=== PATIENT | female | born 1990 | race Caucasian/White ===

== ENCOUNTER 2019-06-06 08:37 | Outpatient (CLI) | payer OTHER, SELFPAY ==
--- NOTE | ~2019-06-06 | XR_ITS ---
[[id number] ] INDICATION: Left anterior chest pain. Screening for tuberculosis. TECHNIQUE: Frontal projection of the upper left ribs, frontal projection of the lower left ribs, obli que projection of all the left ribs, frontal inspiratory chest x-ray for interpretation. COMPARISON: 02/23/2018 FINDINGS: There are no displaced rib fractures identified. There are no soft tissue abnormality see n. The lungs are clear. IMPRESSION: 1:No displaced rib fractures. Reviewed, dictated and finalized at location A. RETE GRINDER OPERATOR
--- NOTE | ~2019-06-06 | US_ITS ---
EXAMINATION: US abdomen limited EXAM DATE: 06/06/2019 09:04 INDICATION: Felty's syndrome. Splenomegaly. TECHNIQUE: Multiple grayscale and Doppler images of the left upper quadrant. were obtained (by a tech nologist who performed the scan) and subsequently reviewed. Correlation is made to CT abdomen 09/16/19. FINDINGS: The spleen is severely enlarged measuring 23 cm diameter by 10 cm in thickness. Superior pole of left kidney is unremarkable. On CT abdomen 2017, the spleen measured 16 x 7 cm. IMPRESSION: 1. Severe splenomegaly up to 23 cm. Reviewed, dictated and finalized at location A. LEUM LAYER
== END 2019-06-06 08:38 | disposition home or self-care (01) ==
PROVIDERS: PCP Physician Assistant
DX: M05.00 Felty's syndrome, unspecified site (principal); M05.9 Rheumatoid arthritis with rheumatoid factor, unspecified
CPT/HCPCS: 71101; 76705

== ENCOUNTER 2019-10-11 09:41 | Emergency (ER) | payer OTHER, SELFPAY ==
--- NOTE | 2019-10-11 10:00 | ED.ANXIETY ---
HPI - Anxiety General Chief Complaint: Anxiety Stated Complaint: legs tingle ,Sweats/ Numbness L arm/high blood pre Time Seen by Provider: 10/11/19 10:01 Source: patient Limitations: no limitations History of Present Illness HPI narrative: Patient states that she is having some generalized achiness. Some tingling in her feet and arms. She denies being anxious. She states she only has anxiety during storms. She did see her primary care recently and was supposed to start on some high blood pressure medication. She has not picked it up yet. She says this problem been going on for 2 weeks. She says that she stands and paces because makes the tingling in her toes feel better. complaint: anxiety Onset (ago): week(s) (2) Symptoms: extremity numbness/tingling Severity: moderate Quality: intermittent Relieving factors: nothing Associated symptoms: denies other symptoms Related Data Home Medications Medication Instructions Recorded Confirmed escitalopram oxalate 10 mg tablet 10 mg PO DAILY 07/31/19 sulfamethoxazole-trimethoprim 1 tablet PO DAILY 10/11/19 10/11/19 Allergies Allergy/AdvReac Type Severity Reaction Status Date / Time diphenhydramine Allergy Mild SEIZURES Verified 09/04/14 16:30 latex Allergy Mild Rash Verified 09/15/19 11:10 loratadine [From Claritin-D] Allergy Mild Hives Verified 09/15/19 11:10 pseudoephedrine Allergy Mild Hives Verified 09/15/19 11:10 [From Claritin-D] Review of Systems Review of Systems: All systems reviewed & are unremarkable except as noted in HPI and below Cardiovascular: Cardiovascular: Denies chest pain and Denies rapid heart rate Respiratory: Respiratory: Reports no additional respiratory complaints Gastrointestinal: Gastrointestinal: Reports no additional gastrointestinal complaints Musculoskeletal: Musculoskeletal: Reports no additional musculoskeletal complaints Neurologic: Reports system reviewed and no additional complaints, except as documented [facility] Past Medical History Medical History (Updated 10/11/19 @ 12:07 by John Delvalle MD) Anxiety 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 Surgical History Surgical History (Updated 10/11/19 @ 12:07 by John Delvalle MD) Post-lymphadenectomy lymphedema of arm Family History Family History Mother , 46 COPD (chronic obstructive pulmonary disease) Emphysema/COPD Father , cancer age 47 Lung cancer Grandparent Alzheimer disease Malignant neoplasm of prostate Grandparent , 46 cancer Lung cancer Sibling Lupus Sibling Lupus Social History Social History (Updated 07/31/19 @ 15:07 by Palam Portillo) Smoking status: Current every day smoker Tobacco type: e-cigarettes/vaping Alcohol intake: never Gender identity (if verbalized by the patient): Female Exam Const: General: healthy appearing and no acute distress Nutritional Appearance: well nourished and obese morbidly obese Orientation/consciousness: patient oriented x3 Other: Female nurse in room during examination. HENMT: Head: normal to inspection Eyes: Conjunctivae: conjunctivae normal Pupils: Equal, round and reactive pupils present EOM: EOMs intact bilaterally Neck: Neck: normal visual inspection Resp: Effort & Inspection: normal respiratory effort Auscultation: clear to auscultation bilaterally Cardio: Rate: regular rate Rhythm: regular rhythm GI: GI Palp: Yes Soft to palpation and No Tenderness to palpation present (GI) Auscultation: normal bowel sounds Back/Spine/Pelvis: Cervical Spine: cervical ROM normal Thoracic/Lumbar Spine: thoraco-lumbar ROM normal Skin: General skin exam: normal color Rashes: no rashes Neuro: General: patient oriented x3 and moves all extremities Extrem: General: normal to inspection and no clubbing, cyanosis or edema
[2019-10-11] MEDS: CLONIDINE HCL 0.2 MG TABLET PO (10:28)
[2019-10-11 10:47] VITALS: BP 167/87
[2019-10-11 11:14] VITALS: BP 151/92; PULSE 87; RESP 20; O2SAT 98
== END 2019-10-11 11:15 | disposition home or self-care (01) ==
PROVIDERS: Emergency Provider Emergency Medicine; PCP Physician Assistant
DX: I10 Essential (primary) hypertension (principal); F17.200 Nicotine dependence, unspecified, uncomplicated
CPT/HCPCS: 99282; 99283; A9270

== ENCOUNTER 2019-10-26 09:36 | Outpatient (CLI) | payer OTHER, SELFPAY ==
--- NOTE | ~2019-10-26 | XR_ITS ---
XR chest 2V DATE: 10/26/2019 10:06 INDICATION: Right chest pain TECHNIQUE: PA and lateral views COMPARISON: 02/23/2018 PA and lateral views FINDINGS: Normal heart size. No hilar or mediastinal enlargement. No pulmonary infiltrate or consol idation, pulmonary vascular congestion or pleural effusion or pneumothorax. IMPRESSION: No active cardiopulmonary disease Reviewed, dictated and finalized at location B.
== END 2019-10-26 09:37 | disposition home or self-care (01) ==
PROVIDERS: PCP Physician Assistant; Visit Provider Physician Assistant
DX: R07.89 Other chest pain (principal)
CPT/HCPCS: 71046

== ENCOUNTER 2019-11-07 09:59 | Emergency (ER) | payer OTHER, SELFPAY ==
--- NOTE | ~2019-11-07 | CT_ITS ---
EXAMINATION: CT abdomen pelvis w con EXAM DATE: 11/07/2019 13:24 INDICATION: High blood pressure. Left-sided abdominal pain. Splenomegaly. TECHNIQUE: Spiral CT of the abdomen and pelvis was performed following intravenous injection of 100 m L Omnipaque 350. Axial, coronal and sagittal images were reviewed. The dose-length product (DLP) fo r this examination was 1350.76 mGy-cm. The exposure was tailored according to patient size (auto mA exposure control), and iterative reconstruction (ASIR) was used as additional dose reduction techniqu e. Comparison is made to prior examination from 09/15/2017. FINDINGS: There is severe splenomegaly, with the spleen measuring 25 cm in craniocaudal dimension, in creased in size compared to 2018. The liver, spleen, adrenal glands and pancreas are otherwise unrem arkable. Gallbladder is unremarkable. No biliary obstruction. Portal and splenic veins are patent. Kidneys enhance symmetrically. There is no hydronephrosis. There is a 2 mm left inferior calyceal stone. The uterus and ovaries are unremarkable, no adnexal mass. The bladder is unremarkable. Ther e is no retroperitoneal or pelvic lymphadenopathy. The appendix is normal. The stomach and small bowel are unremarkable. There is expected amount of c olonic stool. No free intraperitoneal gas. The heart is normal in size. There are no pericardial or pleural effusions. The lung bases are unremarkable. The bones are unremarkable. IMPRESSION: 1. No acute intra-abdominal findings. 2. Severe splenomegaly. 3. Left nephrolithiasis. Reviewed, dictated and finalized at location A.
[2019-11-07 10:05] VITALS: BP 140/95; PULSE 79; RESP 20; TEMP 36.6; O2SAT 96
--- NOTE | 2019-11-07 10:32 | PC.NURSE ---
REPORT TO [facility]
--- NOTE | 2019-11-07 11:19 | ED.ABDPAIN ---
HPI - Abdominal Pain General Chief Complaint: Abdominal Pain Stated Complaint: High blood pressure/ Pain L side Source: patient Mode of arrival: ambulatory Limitations: no limitations History of Present Illness HPI narrative: pt states that ruq pain, this am, mild nausea. she was also concerned about her bp. MD elicited complaint: abdominal pain Quality: aching Radiation: LUQ Migration to: no migration Exacerbating factors: nothing Relieving factors: nothing Associated symptoms: nausea Related Data Date of Last Menstrual Period: 09/21/19 Patient : No (pt does not have sex with men) Home Medications Medication Instructions Recorded Confirmed escitalopram oxalate 10 mg tablet 10 mg PO DAILY 07/31/19 11/07/19 sulfamethoxazole-trimethoprim 1 tablet PO DAILY 10/11/19 11/07/19 amlodipine 5 mg PO BID 11/07/19 11/07/19 hydroxyzine HCl 25 mg PO DAILY 11/07/19 11/07/19 Allergies Allergy/AdvReac Type Severity Reaction Status Date / Time diphenhydramine Allergy Mild SEIZURES Verified 09/04/14 16:30 latex Allergy Mild Rash Verified 09/15/19 11:10 loratadine [From Claritin-D] Allergy Mild Hives Verified 09/15/19 11:10 pseudoephedrine Allergy Mild Hives Verified 09/15/19 11:10 [From Claritin-D] Review of Systems Review of Systems: All systems reviewed & are unremarkable except as noted in HPI and below Constitutional: Constitutional: Reports as per HPI and Reports no additional constitutional complaints Eyes: Eyes: Reports as per HPI ENT: Reports system reviewed and no additional complaints, except as documented Cardiovascular: Cardiovascular: Reports no additional cardiovascular complaints Respiratory: Respiratory: Reports no additional respiratory complaints Gastrointestinal: Gastrointestinal: Reports abdominal pain, Denies bloating, Denies constipation, Denies heartburn, Denies diarrhea, Reports nausea and Denies vomiting Musculoskeletal: Musculoskeletal: Reports no additional musculoskeletal complaints Integumentary/Breasts: Skin/Breast: Reports system reviewed and no additional complaints, except as docu Neurologic: Reports system reviewed and no additional complaints, except as documented Psychiatric: Psychiatric: Reports no additional psychiatric complaints Endocrine: Endocrine: Reports no additional endocrine complaints Hematologic/Lymphatic: Hematologic/Lymphatic: Reports no additional hematologic/lymphatic complaints Allergic/Immunologic: Allergic/Immunologic: Reports no additional allergic/immunologic complaints [facility] Past Medical History Medical History Anxiety 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 Surgical History Surgical History Post-lymphadenectomy lymphedema of arm Family History Family History Mother , 46 COPD (chronic obstructive pulmonary disease) Emphysema/COPD Father , cancer age 47 Lung cancer Grandparent Alzheimer disease Malignant neoplasm of prostate Grandparent , 46 cancer Lung cancer Sibling Lupus Sibling Lupus Social History Social History Smoking status: Current every day smoker Tobacco type: e-cigarettes/vaping Alcohol intake: never Gender identity (if verbalized by the patient): Female Exam Const: General: no acute distress and alert Orientation/consciousness: patient oriented x3 HENMT: Head: normal to inspection Eyes: Pupils: Equal, round and reactive pupils present Neck: Neck: normal visual inspection Chest: Chest palpation & inspection: normal inspection of the chest Resp: Effort & Inspection: normal respiratory effort Cardio: Rate: regular rate Rhythm: regular rhythm GI:
[2019-11-07 11:28] LABS: Add Urine Microscopic? NO; Appearance Urine Clear (Clear); Bilirubin Urine Negative (Negative); Blood Urine Negative (Negative); Color Urine Yellow (Yellow); Glucose Urine UA Negative (Negative); Ketones Urine Negative (Negative); Leukocyte Esterase Ur Negative LEU/UL (Negative); Nitrate Urine Negative (Negative); Protein Urine Negative (Negative); Specific Grav Ur <= 1.005 (1.010-1.020); Urobilinogen Urine 0.2 mg/dL (0.2-1.0)
[2019-11-07 11:33] LABS: Hemoglobin 11.9 g/dL (12.0-15.0); Mean Corpuscular HGB Conc 33.1 g/dL (32.0-36.0); Mean Corpuscular Hemoglobin 25.1 pg (27.0-31.0); Mean Corpuscular Volume 75.8 fL (78.0-102.0); Mean Platelet Volume 9.6 fl (9.2-11.8); Platelet Count Result 139 K/mm3 (150-420); Red Blood Count 4.75 M/mm3 (4.20-5.40)
[2019-11-07 11:34] VITALS: BP 109/62
[2019-11-07 11:47] LABS: Alanine Aminotransferase 40 U/L (14-59); Albumin Level 3.8 g/dL (3.4-5.0); Alkaline Phosphatase 90 U/L (46-116); Anion Gap 11.2 mmol/L (7-16); Aspartate Amino Transferase 29 U/L (15-37); Bilirubin,Total 0.3 mg/dL (0.00-1.00); Blood Urea Nitrogen 10 mg/dL (7-18); Calcium 8.8 mg/dL (8.5-10.1); Carbon Dioxide 28 mmol/L (21-32); Chloride 101 mmol/L (98-108); Estimated CRCL calculation 101 ml/min; Estimated Glomerular Filt Rate > 60; Glucose 101 mg/dL (70-99); Lipase 41 U/L (73-393); Osmolality Calculated 281 mOsm/kg (285-295); Potassium 4.2 mmol/L (3.5-5.1); Sodium 136 mmol/L (136-145); Total Protein 9.3 g/dL (6.4-8.2)
[2019-11-07 11:53] LABS: Band Neutrophils Percent 4 % (0-6); Basophils Absolute Manual 0.01 K/mm3 (0-0.1); Basophils Percent Manual 1 % (0-1); Eosinophils Absolute Manual 0.01 K/mm3 (0.02-0.5); Eosinophils Percent Manual 1 % (1-6); Lymphocytes Absolute Manual 0.68 K/mm3 (1.1-4.5); Lymphocytes Percent Manual 68 % (18-44); Monocytes Absolute Manual 0.14 K/mm3 (0.1-0.90); Monocytes Percent Manual 14 % (3-9); Neutrophils Absolute Manual 0.16 K/mm3 (1.7-7.2); Neutrophils Percent Manual 12 % (46-73); Platelet Estimate Adequate (Adequate); Total Cells Counted 100
[2019-11-07 12:56] LABS: Pregnancy On Board Control Positive; Specific Gravity Ur < 1.005 (1.010-1.035); Urine Pregnancy Test Negative
--- NOTE | 2019-11-07 14:00 | PC.NURSE ---
RUDDY POLLACK CALLED FOR CONSULT
[2019-11-07 14:15] VITALS: BP 151/97
== END 2019-11-07 14:15 | disposition home or self-care (01) ==
PROVIDERS: Emergency Provider Emergency Medicine; PCP Physician Assistant
DX: D70.9 Neutropenia, unspecified (principal); M05.79 Rheumatoid arthritis with rheumatoid factor of multiple sites without organ or systems involvement; R10.9 Unspecified abdominal pain
CPT/HCPCS: 36415; 74177; 80053; 81003; 81025; 83690; 85025; 99282; 99284; Q9965

== ENCOUNTER 2019-12-23 16:29 | Emergency (ER) | payer OTHER, SELFPAY ==
[2019-12-23 16:38] VITALS: BP 136/74; PULSE 96; RESP 20; TEMP 36.4; O2SAT 100
--- NOTE | 2019-12-23 17:08 | ED.WOUNDLAC ---
HPI - Wound/Laceration General Chief Complaint: Wound/Laceration Stated Complaint: Foot laceration Time Seen by Provider: 12/23/19 16:31 Source: patient and RN notes reviewed Limitations: no limitations History of Present Illness HPI narrative: The patient, who is on several meds, presents with foot laceration. Patient states she is compliant with her RA meds with associated Felty syndrome [neutropenia, thrombocytopenia last platelets =146k] she complains of lateral, right hindfoot laceration. She sustained a cut from a sliding door that closed upon it, prior to arrival. symptoms are mild to moderate w/bleeding, its better with rest or elevation. No weakness, numbness; immunizations UTD Related Data Home Medications Medication Instructions Recorded Confirmed escitalopram oxalate 10 mg tablet 10 mg PO DAILY 07/31/19 11/07/19 amlodipine 5 mg PO BID 11/07/19 11/07/19 acyclovir 12/23/19 amlodipine 12/23/19 clindamycin HCl 12/23/19 fluconazole 12/23/19 hydroxychloroquine 12/23/19 hydroxyzine HCl 12/23/19 losartan 12/23/19 methotrexate sodium 12/23/19 Allergies Allergy/AdvReac Type Severity Reaction Status Date / Time diphenhydramine Allergy Mild SEIZURES Verified 09/04/14 16:30 latex Allergy Mild Rash Verified 09/15/19 11:10 loratadine [From Claritin-D] Allergy Mild Hives Verified 09/15/19 11:10 pseudoephedrine Allergy Mild Hives Verified 09/15/19 11:10 [From Claritin-D] Review of Systems Review of Systems: Narrative: General/Constitutional: No weight loss,fever Eyes: N0: Redness,discharge Ears/Nose/Throat: No: Epistaxis,ear discharge Respiratory: Denies: Hemoptysis Gastrointestinal: No Vomiting, Bleeding-rectal Skin: No Lumps, eruption Neurologic: No Focal Weakness,Sz Hematologic: Denies: Petechiae/Purpura Psychiatric: No: Suicida ideationl All Other Systems: Reviewed and Negative [facility] Social History Social History Smoking status: Current every day smoker Tobacco type: e-cigarettes/vaping Alcohol intake: never Gender identity (if verbalized by the patient): Female Comments At time of signature, agree with nursing past medical, surgical, social and family history. There is no relevant family history pertinent to the presenting complaint Exam Narrative: Exam Narrative: General Appearance: Well appearing, Conjunctiva clear Mouth/Throat: Normal appearing, Supple Respiratory: Airway patent, No respiratory distress Skin: Warm, Dry, 7 cm lateral disto-lateral ankle/ hindfoot laceration which is linear and superficial MS-ankle: Full ROM, 5/5 strength Neurological: A&O x3, CN II-X intact Psychiatric: Normal mood, Normal affect Course Vital Signs Vital signs: Vital Signs Temperature 97.5 F L 12/23/19 16:38 Pulse Rate 96 12/23/19 16:38 Respiratory Rate 20 12/23/19 16:38 Blood Pressure 136/74 12/23/19 16:38 Pulse Oximetry 100 12/23/19 16:38 Temperature 97.5 F L 12/23/19 16:38 Pulse Rate 96 12/23/19 16:38 Respiratory Rate 20 12/23/19 16:38 Blood Pressure 136/74 12/23/19 16:38 Pulse Oximetry 100 12/23/19 16:38 Procedures Laceration Laceration 1: Date: 12/23/19 Site: lower extremity Side (If applicable): right Size (cm): 7 Description: linear Depth: simple, single layer Local Anesthetic: other anesthetic (topical) Amount of anesthesia used (mL): 1 Pre-repair: irrigated extensively ====== Skin Level ====== Skin layer closed with: dave ====== Subcutaneous Layer ====== ====== Muscle Layer ====== ====== Tendon Layer ====== Discharge Plan Discharge Clinical Impression: Foot laceration Patient Disposition: Home, Self-Care Condition: Improved Instructions: Antibiotic Form, Laceration (ED) Additional Instructions: Remove dave in about 8-10 days, then place butterfl
== END 2019-12-23 17:16 | disposition home or self-care (01) ==
PROVIDERS: Emergency Provider Emergency Medicine; PCP Physician Assistant
DX: S91.311A Laceration without foreign body, right foot, initial encounter (principal); W23.0XXA Caught, crushed, jammed, or pinched between moving objects, initial encounter; F17.200 Nicotine dependence, unspecified, uncomplicated; I10 Essential (primary) hypertension; M06.9 Rheumatoid arthritis, unspecified; F41.9 Anxiety disorder, unspecified; F32.9 Major depressive disorder, single episode, unspecified
CPT/HCPCS: 12002; 99213; G0463

== ENCOUNTER 2020-08-27 12:38 | Emergency (ER) | payer OTHER, SELFPAY ==
--- NOTE | ~2020-08-27 | US_ITS ---
EXAMINATION: US venous doppler [facility] DATE: 08/27/2020 15:26 INDICATION: Tachycardia. Near syncope. Lightheadedness. Rheumatoid arthritis and positive d-dimer. TECHNIQUE: Grayscale ultrasound images without and with compression and Doppler ultrasound images of the bilateral lower extremity veins were obtained. COMPARISON: None. FINDINGS: The visualized portions of right common femoral vein, profunda (deep) femoral vein, femoral vein, pop liteal vein, posterior tibial veins, peroneal veins, gastrocnemius vein and greater saphenous vein ou tflow are patent. The visualized portions of left common femoral vein, profunda femoral vein, femoral vein, popliteal v ein, posterior tibial veins, peroneal veins, gastrocnemius vein and greater saphenous vein outflow ar e patent. IMPRESSION: 1. No deep venous thrombosis in either lower limb. Reviewed, dictated and finalized at location A.
--- NOTE | ~2020-08-27 | CT_ITS ---
EXAMINATION: CTA chest PE protocol DATE: 08/27/2020 14:26 INDICATION: Near syncope. TECHNIQUE: Computed tomography angiography (CTA) of the chest was performed with 100 mL Omnipaque-350 intravenous contrast timed to evaluate the pulmonary arteries. Coronal maximum intensity projection 3D-reconstructions were created by the technologist. Automated exposure control and iterative reconst ruction technique were employed. The dose-length product was 844.63 mGy-cm. COMPARISON: CT abdomen and pelvis 11/07/2019 FINDINGS: There is no pneumonia or pleural effusion. The heart size is normal. No pericardial effusio n. There is no pulmonary embolus. There is a small sliding hiatal hernia. There are changes of splene ctomy. There is mild thoracic spondylosis. IMPRESSION: 1. No pulmonary embolus. 2. Small sliding hiatal hernia. Reviewed, dictated and finalized at location B.
[2020-08-27 12:45] VITALS: BP 162/102; PULSE 81; RESP 16; TEMP 37.1; O2SAT 100
--- NOTE | 2020-08-27 12:56 | ED.DIZZY ---
HPI - Dizziness General Chief Complaint: Dizziness Stated Complaint: feels like going to pass out Time Seen by Provider: 08/27/20 12:56 Source: patient Mode of arrival: ambulatory Limitations: no limitations History of Present Illness HPI Narrative: 29-year-old woman with history of rheumatoid arthritis and Felty syndrome Comes to the ER today complaining of lightheadedness while she was walking into the drugstore. Patient states that her vision got blurry, she felt like she was going to pass out and had rapid heart rate. She also felt nauseated. She states she has been having similar symptoms for last 2 days. She denies any recent illness, fever, cough, shortness of breath, chest pain, vomiting or diarrhea, abdominal pain, bruising, or calf pain. She checked her blood pressure and blood sugar at home, both were fine. MD elicited complaint: near syncope Onset (ago): day(s) (2) Timing: intermittent Severity: moderate Description: lightheadedness and near-syncope Context: exertion History of similar symptoms: No Exacerbating factors: standing Relieving factors: nothing Associated symptoms: nausea Associated neuro symptoms: vision changes Related Data Home Medications Medication Instructions Recorded Confirmed escitalopram oxalate 10 mg tablet 10 mg PO DAILY 07/31/19 08/27/20 amlodipine 5 mg PO BID 11/07/19 08/27/20 aspirin [Aspir-81] 81 mg PO DAILY 08/27/20 08/27/20 hydrochlorothiazide 25 mg PO DAILY 08/27/20 08/27/20 tramadol 5 mg PO TID PRN 08/27/20 08/27/20 Allergies Allergy/AdvReac Type Severity Reaction Status Date / Time diphenhydramine Allergy Mild SEIZURES Verified 09/04/14 16:30 latex Allergy Mild Rash Verified 09/15/19 11:10 loratadine [From Claritin-D] Allergy Mild Hives Verified 09/15/19 11:10 pseudoephedrine Allergy Mild Hives Verified 09/15/19 11:10 [From Claritin-D] Review of Systems Review of Systems: All systems reviewed & are unremarkable except as noted in HPI and below Constitutional: Constitutional: Denies chills and Denies fever(s) Eyes: Eyes: Denies change in vision and Denies photophobia ENT: Denies dysphagia, Denies nasal congestion and Denies sore throat Cardiovascular: Cardiovascular: Denies chest pain, Reports rapid heart rate and Denies radiating jaw, neck or arm pain Respiratory: Respiratory: Denies cough and Denies dyspnea Gastrointestinal: Gastrointestinal: Denies abdominal pain, Denies diarrhea, Reports nausea and Denies vomiting Genitourinary: Genitourinary: Denies nocturia and Denies dysuria Musculoskeletal: Musculoskeletal: Denies back pain, Denies arthralgias and Denies joint swelling Integumentary/Breasts: Skin/Breast: Denies pruritus, Denies erythema and Denies rash Neurologic: Denies vertigo, Reports dizziness, Denies syncope, Denies focal weakness and Denies numbness Hematologic/Lymphatic: Hematologic/Lymphatic: Denies easy bleeding and Denies easy bruising Allergic/Immunologic: Allergic/Immunologic: Denies lip swelling and Denies throat swelling PMFSH Past Medical History Medical History (Updated 08/27/20 @ 15:55 by David Mehta MD) Anxiety 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
--- NOTE | 2020-08-27 13:02 | ECG_ITS ---
Measurements Intervals [place] Rate: 66 P: 16 IN: 136 QRS: 40 QRSD: 100 T: -2 QT: 395 QTc: 416 Interpretive Statements SINUS RHYTHM INCOMPLETE RIGHT BUNDLE BRANCH BLOCK BORDERLINE T WAVE ABNORMALITY- INFERIOR LEADS BASELINE ARTIFACT- II, III, AVF BORDERLINE ECG Electronically Signed On 08-27-2020 17:56:39 CDT by Buck Andrade D.O.
[2020-08-27 13:10] LABS: Add Urine Microscopic? YES; Appearance Urine Clear (Clear); Bilirubin Urine Negative (Negative); Blood Urine 2+ (Negative); Color Urine Yellow (Yellow); Glucose Urine UA Negative (Negative); Ketones Urine Negative (Negative); Leukocyte Esterase Ur Negative LEU/UL (Negative); Nitrate Urine Negative (Negative); Protein Urine Negative (Negative); Specific Grav Ur <= 1.005 (1.010-1.020); Urobilinogen Urine 0.2 mg/dL (0.2-1.0)
[2020-08-27 13:11] VITALS: BP 143/95; PULSE 69
[2020-08-27 13:15] VITALS: BP 153/103; PULSE 72
[2020-08-27 13:19] LABS: Basophils Absolute Auto 0.08 K/mm3 (0.00-0.10); Basophils Percent Auto 1.1 % (0.0-1.0); Eosinophils Absolute Auto 0.13 K/mm3 (0.02-0.50); Eosinophils Percent Auto 1.8 % (1.0-6.0); Hematocrit 39.8 % (35.0-49.0); Hemoglobin 13.5 g/dL (12.0-15.0); Immature Granulocyte Absolute 0.02 K/mm3 (0.00-0.00); Immature Granulocyte Percent A 0.3 % (0.0-0.0); Immature Platelet Fraction Pct 1.9 % (1.0-7.0); Lymphocytes Absolute Auto 1.84 K/mm3 (1.10-4.50); Lymphocytes Percent Auto 25.4 % (18.0-42.0); Mean Corpuscular HGB Conc 33.9 g/dL (32.0-36.0); Mean Corpuscular Hemoglobin 29.8 pg (27.0-31.0); Mean Corpuscular Volume 87.9 fL (78.0-102.0); Mean Platelet Volume 9.1 fl (9.2-11.8); Monocytes Absolute Auto 0.71 K/mm3 (0.10-0.90); Monocytes Percent Auto 9.8 % (2.0-11.0); Neutrophils Absolute Auto 4.5 K/mm3 (1.7-7.2); Neutrophils Percent Auto 61.6 % (50.0-70.0); Platelet Count Result 620 K/mm3 (150-420); Red Blood Count 4.53 M/mm3 (4.20-5.40); Red Cell Distribution Width 14.2 % (11.6-14.4); White Blood Count 7.2 K/mm3 (4.8-10.8)
[2020-08-27 13:20] LABS: Bacteria Urine Trace /hpf; Squamous Epithelial Cell Urine Rare /hpf (Few); WBC Urine 0-3 /hpf (0-3)
[2020-08-27 13:32] LABS: Prothrombin Time 10.5 Seconds (9.50-12.10)
[2020-08-27 13:33] LABS: Alanine Aminotransferase 35 U/L (14-59); Albumin Level 4.1 g/dL (3.4-5.0); Alkaline Phosphatase 74 U/L (46-116); Anion Gap 8 mmol/L (8-16); Aspartate Amino Transferase 11 U/L (15-37); Bilirubin,Total 0.4 mg/dL (0.00-1.00); Blood Urea Nitrogen 8 mg/dL (7-18); Calcium 8.9 mg/dL (8.5-10.1); Carbon Dioxide 30 mmol/L (21-32); Chloride 102 mmol/L (98-108); Estimated Glomerular Filt Rate > 60; Glucose 115 mg/dL (70-99); Osmolality Calculated 289 mOsm/kg (285-295); Potassium 3.5 mmol/L (3.5-5.1); Sodium 140 mmol/L (136-145); Total Protein 8.8 g/dL (6.4-8.2)
[2020-08-27 13:36] LABS: Lactic Acid Reflex 0.9 mmol/L (0.4-2.0)
[2020-08-27 13:41] LABS: D Dimer 0.81 mg/L (0.19-0.50)
[2020-08-27 14:05] LABS: Pregnancy On Board Control Positive; Urine Pregnancy Test Negative
[2020-08-27 16:00] VITALS: BP 123/56
== END 2020-08-27 16:02 | disposition home or self-care (01) ==
PROVIDERS: Emergency Provider Emergency Medicine; PCP Physician Assistant
DX: R42 Dizziness and giddiness (principal)
CPT/HCPCS: 36415; 71275; 80053; 81001; 81025; 83605; 85025; 85055; 85380; 85610; 85730; 93005; 93970; 99283; 99284; Q9967

== ENCOUNTER 2022-03-09 14:01 | Emergency (ER) | payer OTHER, SELFPAY ==
[2022-03-09 14:30] VITALS: BP 124/81; PULSE 59; RESP 16; TEMP 36.7; O2SAT 100
--- NOTE | 2022-03-09 15:44 | ED.URI ---
HPI - URI/Sore Throat General Chief Complaint: Upper Respiratory Infection Stated Complaint: sore throat ear fluid Time Seen by Provider: 03/09/22 15:45 Source: patient and RN notes reviewed Mode of arrival: ambulatory Limitations: no limitations History of Present Illness HPI Narrative: 31-year-old female presents with concern for left-sided sore throat and ear pain. Denies nasal congestion and rhinorrhea, headache, fever, aches, chills, sweats. Denies drainage from the ear. Denies known sick contacts. Reports history of spleen removal MD elicited complaint: sore throat Related Data Home Medications Medication Instructions Recorded Confirmed escitalopram oxalate 10 mg tablet 10 mg PO DAILY 07/31/19 08/27/20 amlodipine 5 mg tablet 5 mg PO BID 11/07/19 08/27/20 aspirin 81 mg tablet,delayed 81 mg PO DAILY 08/27/20 08/27/20 release hydrochlorothiazide 25 mg tablet 25 mg PO DAILY 08/27/20 08/27/20 tramadol 50 mg tablet 5 mg PO TID PRN Pain 08/27/20 08/27/20 Allergies Allergy/AdvReac Type Severity Reaction Status Date / Time diphenhydramine Allergy Mild SEIZURES Verified 09/04/14 16:30 latex Allergy Mild Rash Verified 09/15/19 11:10 loratadine [From Claritin-D] Allergy Mild Hives Verified 09/15/19 11:10 pseudoephedrine Allergy Mild Hives Verified 09/15/19 11:10 [From Claritin-D] Review of Systems Review of Systems: CONSTITUTIONAL: Denies malaise, chills, sweats, or fever. EYES: Denies visual changes, redness, or discharge. ENT: Reports rhinorrhea, congestion, sinus pain. Reports left-sided otalgia and sore throat. CARDIOVASCULAR: Denies chest pain, palpitations, or edema. RESPIRATORY: Denies cough. Denies dyspnea. GASTROINTESTINAL: Denies abdominal pain, nausea, vomiting, diarrhea SKIN: Denies rash or itching. MUSCULOSKELETAL: Denies myalgia. NEUROLOGIC: Denies headache. 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 Surgical History Surgical History (Updated 08/27/20 @ 13:47 by Dvaid Mehta MD) H/O splenectomy Post-lymphadenectomy lymphedema of arm Family History Family History Mother , 46 COPD (chronic obstructive pulmonary disease) Emphysema/COPD Father , cancer age 47 Lung cancer Grandparent Alzheimer disease Malignant neoplasm of prostate Grandparent , 46 cancer Lung cancer Sibling Lupus Sibling Lupus Social History Social History Smoking status: Current every day smoker Tobacco type: e-cigarettes/vaping Alcohol intake: never Gender identity (if verbalized by the patient): Female Comments At time of signature, agree with nursing past medical, surgical, social and family history. There is no relevant family history pertinent to the presenting complaint Exam Narrative: GENERAL: Well-appearing, well-nourished, and in no acute distress. HEAD: Normocephalic EYES: PERRLA, conjunctivae clear ENT: Nares clear, turbinates edematous and erythematous, clear discharge. Mucous membranes moist. TM pearly sanon with sharp light reflex bilaterally; no tragal tenderness. Oropharynx erythematous without lesions. Left-sided Tonsils enlarged with exudate. No drooling, no hoarseness, no trismus, uvula midline. NECK: Supple. No lymphadenopathy CHEST: Clear to auscultation, breath sounds equal. No wheezing, rhonchi, rales, or stridor. No respiratory distress, speaks in full sentences. HEART: Regular rate and rhythm. No murmur heard. SKIN: Warm, dry, no rash. NEURO: Alert and oriented x3. PSYCH: Normal mood and affect Course Course Emergency Course: Patient is aware of diagnosis, unde
== END 2022-03-09 16:20 | disposition home or self-care (01) ==
PROVIDERS: Emergency Provider Nurse Practitioner; PCP Physician Assistant
DX: J03.90 Acute tonsillitis, unspecified (principal); F41.9 Anxiety disorder, unspecified; J45.909 Unspecified asthma, uncomplicated; M05.9 Rheumatoid arthritis with rheumatoid factor, unspecified; F17.290 Nicotine dependence, other tobacco product, uncomplicated
CPT/HCPCS: 87081; 87880; 99213; G0463

== ENCOUNTER 2022-07-07 07:45 | Emergency (ER) | payer OTHER, SELFPAY ==
[2022-07-07 07:45] VITALS: BP 137/85; PULSE 87; RESP 18; TEMP 37.1; O2SAT 97
--- NOTE | 2022-07-07 07:59 | ED.FEMALEGU ---
HPI - Female Genitourinary General Chief complaint: Upper Respiratory Infection Stated complaint: Facial Swelling Time Seen by Provider: 07/07/22 07:58 Source: patient History of Present Illness HPI Narrative: 31-year-old white female complains of cold sore on her upper lip that started last night and then has swelling for lymph nodes on to her neck /chin. Otherwise is eating drinking stooling voiding fine no rash itching cough fever runny nose earache or any pain anywhere or bleeding or bruising or any other complaint. Related Data Home Medications Medication Instructions Recorded Confirmed escitalopram oxalate 10 mg tablet 10 mg PO DAILY 07/31/19 07/07/22 amlodipine 5 mg tablet 5 mg PO BID 11/07/19 07/07/22 aspirin 81 mg tablet,delayed 81 mg PO DAILY 08/27/20 07/07/22 release hydrochlorothiazide 25 mg tablet 25 mg PO DAILY 08/27/20 07/07/22 tramadol 50 mg tablet 5 mg PO TID PRN Pain 08/27/20 07/07/22 Allergies Allergy/AdvReac Type Severity Reaction Status Date / Time diphenhydramine Allergy Mild SEIZURES Verified 07/07/22 08:05 latex Allergy Mild Rash Verified 07/07/22 08:05 loratadine [From Claritin-D] Allergy Mild Hives Verified 07/07/22 08:05 pseudoephedrine Allergy Mild Hives Verified 07/07/22 08:05 [From Claritin-D] Review of Systems Constitutional: Constitutional: Reports no additional constitutional complaints Eyes: Eyes: Reports no additional eye complaints ENT: Reports as per HPI, Denies nasal congestion and Denies sore throat Cardiovascular: Cardiovascular: Reports no additional cardiovascular complaints Respiratory: Respiratory: Reports no additional respiratory complaints Gastrointestinal: Gastrointestinal: Reports no additional gastrointestinal complaints Genitourinary: Genitourinary: Reports no additional female genitourinary complaints Musculoskeletal: Musculoskeletal: Reports no additional musculoskeletal complaints Integumentary/Breasts: Skin/Breast: Reports system reviewed and no additional complaints, except as docu Neurologic: Reports system reviewed and no additional complaints, except as documented PMFSH Past Medical History Medical History (Updated 07/07/22 @ 08:24 by Jan Keller MD) Anxiety 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 intake: never Living arrangements: with family Gender identity (if verbalized by the patient): Female Exam Narrative: White female she appears in no apparent distress head is normocephalic atraumatic. Conjunctiva pink sclera nonicteric. Oropharynx is clear with moist mucous membranes. Upper lip shows the crops of vesicles and mild swelling of her upper lip. Neck is supple positive anterior cervical lymphadenopathy there are tender. Lungs are clear heart is regular rate rhythm without murmurs gallops rubs extremities no cyanosis clubbing or edema neurological she is alert and oriented x4 motor sensory grossly intact. MDM - Female Genitourinary MDM Narrative Medical decision making narrative: This is likely herpes simplex infection then also could have strep throat as well. Strep screen was ordered she is given ibuprofen 400 mg her pain. Should be given a
[2022-07-07] MEDS: IBUPROFEN 400 MG TABLET PO (08:16)
[2022-07-07 08:50] LABS: Strep Group A RT-PCR NOT DETECTED (Negative)
[2022-07-07 09:00] VITALS: BP 122/78; PULSE 80; RESP 18; O2SAT 98
== END 2022-07-07 09:00 | disposition home or self-care (01) ==
PROVIDERS: Emergency Provider Emergency Medicine; PCP Physician Assistant
DX: A60.00 Herpesviral infection of urogenital system, unspecified (principal); M06.9 Rheumatoid arthritis, unspecified; F17.290 Nicotine dependence, other tobacco product, uncomplicated; Z79.82 Long term (current) use of aspirin
CPT/HCPCS: 87651; 99283; A9270

== ENCOUNTER 2022-09-01 08:24 | Outpatient (CLI) | payer OTHER, SELFPAY ==
--- NOTE | ~2022-09-01 | US_ITS ---
US right upper quadrant INDICATION: Right upper quadrant pain PROCEDURE: Realtime right upper abdominal ultrasound. COMPARISON: No prior studies for comparison. FINDINGS: The pancreas is normal without focal mass or pancreatic ductal dilation. Fatty infiltratio n of the liver. There is normal directional flow in the portal vein. The gallbladder is normal without stones, gallbladder wall thickening or pericholecystic fluid. Comm on bile duct measures 3 mm. No sonographic Velasco's sign. IMPRESSION: 1: Fatty infiltration of the liver. Reviewed, dictated and finalized at location L.
== END 2022-09-01 08:25 | disposition home or self-care (01) ==
LOC: CHSIMG 08:25
PROVIDERS: PCP Physician Assistant; Visit Provider Physician Assistant
DX: R10.11 Right upper quadrant pain (principal); K76.0 Fatty (change of) liver, not elsewhere classified
CPT/HCPCS: 76705

== ENCOUNTER 2023-08-22 14:44 | Outpatient (CLI) | payer OTHER, SELFPAY ==
--- NOTE | ~2023-08-22 | US_ITS ---
EXAMINATION: US OB BPP wo non-stress DATE: 08/22/2023 15:55 INDICATION: Hypertension during third trimester . TECHNIQUE: Real-time pelvic ultrasound was performed. The interpreting radiologist was not present fo r the study. COMPARISON: None. FINDINGS: There is a single living fetus in vertex presentation. The placenta is posterior. heart rate i s 129 beats per minute (bpm). Normal amniotic fluid volume of 13.5 cm (5th%-95%: 7.7-84.9 cm at 33 we eks estimated gestational age). Normal deepest vertical pocket measuring 5.3 cm. Biophysical profile performed by the technologist: breathing (30 sec sustained breathing in 30 minutes): 2 out of 2 movement (3 gross body movements in 30 minutes): 2 out of 2 tone (one episode of jblmmrl-udybkmbey-ixnzohq limb movement): 2 out of 2 Amniotic fluid pocket (2 cm): 2 out of 2 Total score: 8 out of 8 IMPRESSION: 1. Single living fetus in vertex presentation with heart rate of 129 bpm. 2. Biophysical profile 8 out of 8. 3. Normal amniotic fluid index of 13.5 cm. Reviewed, dictated and finalized at location A.
[2023-08-22 15:16] VITALS: BP 136/77; PULSE 69
[2023-08-22 16:31] VITALS: BP 136/77
== END 2023-08-22 16:06 | disposition home or self-care (01) ==
LOC: ANHOBOP 14:53 → ANHOBPP 14:53
PROVIDERS: Visit Provider Obstetrics & Gynecology
DX: O13.9 Gestational [pregnancy-induced] hypertension without significant proteinuria, unspecified trimester (principal); Z3A.00 Weeks of gestation of pregnancy not specified
CPT/HCPCS: 59025; 76819; 99199

== ENCOUNTER 2023-09-10 14:47 | Outpatient (CLI) | payer OTHER, SELFPAY ==
[2023-09-10] VITALS (15 sets, daily range): BP systolic 142–164; BP diastolic 73–91; PULSE 60–81
--- NOTE | ~2023-09-10 | US_ITS ---
EXAMINATION: US OB BPP wo non-stress DATE: 09/10/2023 17:35 INDICATION: Prolonged cardiac accelerations during third trimester . Assess biophysica l profile. TECHNIQUE: Real-time pelvic ultrasound was performed. The interpreting radiologist was not present fo r the study. COMPARISON: None. FINDINGS: There is a single living fetus in vertex presentation. The placenta is posterior. heart rate i s 119 beats per minute (bpm). Normal amniotic fluid index of 8.1 cm with normal deepest vertical pock et of 4.8 cm. Biophysical profile performed by the technologist: breathing (30 sec sustained breathing in 30 minutes): 2 out of 2 movement (3 gross body movements in 30 minutes): 2 out of 2 tone (one episode of kfmqjvl-tonyyegfa-onsjwgl limb movement): 2 out of 2 Amniotic fluid pocket (2 cm): 2 out of 2 Total score: 8 out of 8 IMPRESSION: 1. Single living fetus in vertex presentation with heart rate of 119 bpm. 2. Biophysical profile 8 out of 8. 3. Normal amniotic fluid index of 8.1 cm. Reviewed, dictated and finalized at location A.
[2023-09-10 15:40] LABS: Basophils Absolute Auto 0.1 K/mm3 (0.0-0.1); Basophils Percent Auto 0.3 % (0.2-1.2); Eosinophils Absolute Auto 0.1 K/mm3 (0-0.3); Eosinophils Percent Auto 0.4 % (0-4.4); Hematocrit 31.9 % (37.0-47.0); Hemoglobin 10.6 g/dL (12.0-15.0); Immature Granulocyte Absolute 0.06 K/mm3 (0.00-0.031); Immature Granulocyte Percent A 0.4 % (0-0.5); Lymphocytes Absolute Auto 3.01 K/mm3 (0.9-3.2); Lymphocytes Percent Auto 19.1 % (18.3-44.2); Mean Corpuscular HGB Conc 33.2 g/dl (32-36); Mean Corpuscular Hemoglobin 30.4 pg (26-34); Mean Corpuscular Volume 91.4 fl (80-100); Mean Platelet Volume 10.7 fl (7.4-10.4); Monocytes Absolute Auto 1.3 K/mm3 (0.1-0.6); Neutrophils Absolute Auto 11.3 K/mm3 (1.3-6.7); Neutrophils Percent Auto 71.8 % (45.5-73.1); Platelet Count Result 436 k/mm3 (150-375); Red Blood Count 3.49 M/mm3 (4.2-5.4); White Blood Count 15.7 K/mm3 (4.5-10.0)
[2023-09-10 15:42] LABS: Appearance Urine Clear (Clear); Bilirubin Urine Negative (Negative); Blood Urine Negative (Negative); Color Urine Yellow (Yellow); Glucose Urine UA Negative (Negative); Ketones Urine Negative (Negative); Leukocyte Esterase Ur Negative LEU/UL (Negative); Nitrate Urine Negative (Negative); Protein Urine Negative (Negative); Urobilinogen Urine 0.2 mg/dL (<2.0)
[2023-09-10 15:49] LABS: Creatinine Urine 33.8 mg/dL; Total Protein Urine Random 9 mg/dL; Ur Ttl Prot Creatinine Ratio 0.27 mg/mg (0-0.20)
[2023-09-10 15:52] LABS: Alanine Aminotransferase 10 U/L (6-35); Albumin Level 3.7 g/dL (3.5-5.1); Alkaline Phosphatase 79 U/L (38-126); Anion Gap 9 mmol/L (4-12); Aspartate Amino Transferase 16 U/L (14-36); Bilirubin,Total 0.3 mg/dL (0.2-1.3); Blood Urea Nitrogen 14 mg/dL (7-17); Carbon Dioxide 18 mmol/L (22-30); Chloride 109 mmol/L (98-107); Estimated Glomerular Filt Rate > 60; Glucose 98 mg/dL (65-110); Potassium 3.6 mmol/L (3.4-5.0); Sodium 136 mmol/L (137-145); Uric Acid 5.3 mg/dL (2.5-7.5)
[2023-09-10 16:09] LABS: Add Urine Microscopic? NO
[2023-09-10] MEDS: LABETALOL HCL 100 MG TABLET 200 MG PO (16:40)
--- NOTE | 2023-09-10 18:47 | PC.NURSE ---
Called Dr. Arciniega with pt status. BPs given. August D/C home to follow up in office on Wednesday morning. Pt to take Labetalol 200mg BID at home.
== END 2023-09-10 18:47 | disposition home or self-care (01) ==
LOC: ANHOBOP 14:52 → ANHOBPP 14:53
PROVIDERS: PCP Physician Assistant; Visit Provider Obstetrics & Gynecology
DX: O13.9 Gestational [pregnancy-induced] hypertension without significant proteinuria, unspecified trimester (principal); Z3A.00 Weeks of gestation of pregnancy not specified
CPT/HCPCS: 36415; 59025; 76819; 80053; 81003; 82570; 84156; 84550; 85025; 99199; A9270

== ENCOUNTER 2023-09-16 19:28 | Inpatient (IN) | payer OTHER, SELFPAY ==
[2023-09-16 20:10] VITALS: BMI 44.3
--- NOTE | 2023-09-16 20:10 | LDADM ---
This patient, Nickie Martinez, was admitted to Labor/Delivery/Recovery 107 on 09/16/23 at 19:28. Plans for labor, pain management and were discussed with patient. Patient/family oriented to hospital policies and general routines including ID bracelet, bed and alarms, visiting hours, pain management, procedures, bathroom and other care routines, personal items, smoking policy, room service/diet and guest tray routines, security routines, and visiting hours. Patient/Family are encouraged to report perceived risks to care and to ask questions if they do not understand what they are told or what they should do. See OBIX for further documentation.
[2023-09-16 20:25] VITALS: BP 149/75; PULSE 70
[2023-09-16 20:31] VITALS: TEMP 36.6
[2023-09-16] MEDS: DINOPROSTONE 10 MG VAG INSERT VAGINAL (20:52)
[2023-09-16 20:56] LABS: Basophils Percent Auto 0.3 % (0.2-1.2); Eosinophils Absolute Auto 0.1 K/mm3 (0-0.3); Eosinophils Percent Auto 0.3 % (0-4.4); Hematocrit 32.1 % (37.0-47.0); Hemoglobin 11.1 g/dL (12.0-15.0); Immature Granulocyte Absolute 0.06 K/mm3 (0.00-0.031); Immature Granulocyte Percent A 0.4 % (0-0.5); Lymphocytes Absolute Auto 3.42 K/mm3 (0.9-3.2); Lymphocytes Percent Auto 22.2 % (18.3-44.2); Mean Corpuscular HGB Conc 34.6 g/dl (32-36); Mean Corpuscular Hemoglobin 31.3 pg (26-34); Mean Corpuscular Volume 90.4 fl (80-100); Mean Platelet Volume 11.7 fl (7.4-10.4); Monocytes Absolute Auto 1.1 K/mm3 (0.1-0.6); Neutrophils Absolute Auto 10.8 K/mm3 (1.3-6.7); Neutrophils Percent Auto 69.8 % (45.5-73.1); Platelet Count Result 408 k/mm3 (150-375); Red Blood Count 3.55 M/mm3 (4.2-5.4); White Blood Count 15.4 K/mm3 (4.5-10.0)
[2023-09-16 21:18] LABS: Acanthocytes 2+; Platelet Clumps Present; Platelet Estimate Adequate (Adequate); Poikilocytosis 1+
[2023-09-16 21:19] LABS: Schistocytes None Seen
[2023-09-16 21:46] LABS: HIV 1/2 Ab P24 Ag Result Negative (Negative)
[2023-09-16 23:21] VITALS: BP 160/77; PULSE 66
[2023-09-16 23:39] VITALS: BP 154/84; PULSE 61
[2023-09-16 23:44] LABS: Glucose Point of Care 109 mg/dl (65-105)
[2023-09-16] MEDS: LABETALOL HCL 100 MG TABLET 200 MG PO (23:51)
[2023-09-17] VITALS (73 sets, daily range): BP systolic 99–199; BP diastolic 51–92; PULSE 53–85; RESP 16–18; TEMP 36.2–36.9; O2SAT 97–100
[2023-09-17] MEDS: ACETAMINOPHEN 500 MG TABLET 1000 MG PO (03:10)
--- NOTE | 2023-09-17 06:00 | P.PNAN_ITS ---
Anes - Eval Pre Procedure Procedure: Labor epidural Date/Time: 09/17/23 06:00 Surgeon: Demian Preop Diagnosis: Abdominal pain with contractions Pre Op Diagnosis: IOL Patient Data Age: 32 Gender: F Height: 1.57 m Weight: 110 kg Last Vital Signs Temp 97.8 F 09/17/23 05:00 Pulse 60 09/17/23 05:04 BP 123/68 09/17/23 05:04 Pulse Ox 100 09/17/23 05:06 O2 Del Method Room Air 09/16/23 21:14 Allergies Allergy/AdvReac Type Severity Reaction Status Date / Time diphenhydramine Allergy Mild SEIZURES Verified 07/07/22 08:05 latex Allergy Mild Rash Verified 07/07/22 08:05 loratadine [From Claritin-D] Allergy Mild Hives Verified 07/07/22 08:05 pseudoephedrine Allergy Mild Hives Verified 07/07/22 08:05 [From Claritin-D] Home Medications Medication Instructions Recorded Confirmed Type escitalopram oxalate 10 mg tablet 10 mg PO DAILY 07/31/19 09/16/23 History aspirin 81 mg tablet,delayed 81 mg PO DAILY 08/27/20 09/16/23 History release labetalol 200 mg tablet 200 mg PO Q12H #14 tabs 09/10/23 09/16/23 Rx Laboratory Tests 09/16/23 09/16/23 20:23 23:41 WBC 15.4 H K/mm3 (4.5-10.0) RBC 3.55 L M/mm3 (4.2-5.4) Hgb 11.1 L g/dL (12.0-15.0) Hct 32.1 L % (37.0-47.0) MCV 90.4 fl (80-100) MCH 31.3 pg (26-34) MCHC 34.6 g/dl (32-36) RDW 14.0 % (11.5-14.5) Plt Count 408 H k/mm3 (150-375) MPV 11.7 H fl (7.4-10.4) Immature Gran % (Auto) 0.4 % (0-0.5) Neut % (Auto) 69.8 % (45.5-73.1) Lymph % (Auto) 22.2 % (18.3-44.2) [place] % (Auto) 7.0 % (2.6-8.5) Eos % (Auto) 0.3 % (0-4.4) Baso % (Auto) 0.3 % (0.2-1.2) Lymph # (Auto) 3.42 H K/mm3 (0.9-3.2) Wise # (Auto) 1.1 H K/mm3 (0.1-0.6) Eos # (Auto) 0.1 K/mm3 (0-0.3) Baso # (Auto) 0.0 K/mm3 (0.0-0.1) Abs Immat Gran (auto) 0.06 H K/mm3 (0.00-0.031) Absolute Neuts (auto) 10.8 H K/mm3 (1.3-6.7) Absolute Nucleated RBC 0.000 K/mm3 (0.0-0.012) Nucleated RBC % 0.0 % (0.0-0.2) Platelet Estimate Adequate (Adequate) Clumped Platelets Present % Immature Plt Fraction 8.0 % (0.9-11.2) Poikilocytosis 1+ Acanthocytes (Spur) 2+ Schistocytes None seen POC Capillary Glucose 109 H mg/dl (65-105) RPR Pending HIV 1&2 Ab/P24 Ag 4thGn Negative (Negative) Blood Type O Positive Antibody Screen Negative : gestational age HCG: positive Patient hx anesthesia problems: none Family hx anesthesia problems: none Results Review: All pre-operative results and documents have been reviewed as part of the pre- operative evaluation. [facility] Past Medical History Medical History Anxiety Arthritis Felty syndrome Morbid obesity Rheumatoid arthritis with rheumatoid factor of multiple sites without organ or systems involvement Vapes nicotine containing substance Surgical History Surgical History H/O splenectomy Post-lymphadenectomy lymphedema of arm Family History Family History Mother , 46 COPD (chronic obstructive pulmonary disease) Emphysema/COPD Father , cancer age 47 Lung cancer Grandparent Alzheimer disease Malignant neoplasm of prostate Grandparent , 46 cancer Lung cancer Sibling Lupus Sibling Lupus Social History Social History Smoking status: Never smoker Tobacco type: e-cigarettes/vaping Alcohol intake: never Substance use: never Do You Feel Safe in your Home?: Yes Lack of Transportation: No Lack of Food: Never True Current Housing: I Have Housing Concerned About Future Housing: No Difficulty Paying Gas/Electric Bills: No Difficulty Paying for Meds: No Currently Unemployed: No Education: Grade School Difficulty w/ Childcare or Family Care: No Living arrangements: with family Gender identity (if verbalized by the patient): Female Spiritual care concerns: No Exam Day of Procedure 09/17/23 06:00 Patient weight: morbidly obese
--- NOTE | 2023-09-17 08:28 | WPDHPUPDATE1 ---
History and Physical Update Update Date/Time: 09/17/23 08:28 32-year-old 1 at 37 weeks gestation who presents for induction for gestational hypertension. She has completed a round of Cervidil. Her cervix remains unfavorable. We will start doses of Cytotec. there is reassuring heart tones. Her cervix is 1 thick and very posterior. History and Physical has been reviewed, including an updated exam of the patient. There are NO changes in the patient's condition. Risks, benefits, and alternatives have been discussed and questions answered. Patient agrees to proceed with procedure.
[2023-09-17] MEDS: ESCITALOPRAM OXALATE 10 MG TABLET PO (08:29)
[2023-09-17] MEDS: LABETALOL HCL 100 MG TABLET 200 MG PO ×2 (08:29→21:04)
[2023-09-17 08:35] LABS: Glucose Point of Care 104 mg/dl (65-105)
[2023-09-17] MEDS: miSOPROStol 25 MCG TABLET 50 MCG PO (09:36)
[2023-09-17 12:34] LABS: Rapid Plasma Reagin Non-Reactive (NonReactive)
--- NOTE | 2023-09-17 15:08 | PCCCNOTE ---
Recvd consult asking to provide resources. Met with pt. who had her sister Jazmine on speaker phone during conversation. Pt. reports this is her first baby. Pt. venkat will be staying with Jazmine at Jazmine's home in [facility] ([address]) and venkat has multiple siblings who are all supportive. Pt. specifically mentions Jazmine and Glendy. The address on pt's medical chart is Glendy's house ([address] [place] [address]). Pt. venkat was living with her spouse Thea up until recently and now they are going through a divorce. Thea's house is in [place], per pt. Pt. denies any violence or threats between her and spouse. Pt. venkat has all baby supplies and is established with [employer]. Pt. looking into WIC. Pt. denies any involvement with DCFS. Pt. denies drug use. Pt. was provided with SDOH resources, , and financial resources.
[2023-09-17] MEDS: AMPICILLIN 2 GM/NS 100 ML 2 GM/100 ML BAG IVPB (15:55)
[2023-09-17] MEDS: LACTATED RINGERS 1,000 ML 125 ML IV CONT ×2 (15:55→22:34)
[2023-09-17] MEDS: OXYTOCIN 30 UNITS/NS 500 ML 30 UNITS/500 ML BAG 6 UNITS IV CONT (15:56)
--- NOTE | 2023-09-17 19:37 | PM.OBPNVD ---
OB - PN: Subj Subjective Date/time seen: 09/17/23 19:37 Interval history: Artificial rupture of membranes-clear, 1.5 cm/ 80%/-2. reassuring status. OB - PN: Obj Data Labs 09/16/23 20:23 Labs: Laboratory Results - last 24 hr 09/16/23 09/16/23 09/17/23 20:23 23:41 08:31 WBC 15.4 H RBC 3.55 L Hgb 11.1 L Hct 32.1 L MCV 90.4 MCH 31.3 MCHC 34.6 RDW 14.0 Plt Count 408 H MPV 11.7 H Immature Gran % (Auto) 0.4 Neut % (Auto) 69.8 Lymph % (Auto) 22.2 [place] % (Auto) 7.0 Eos % (Auto) 0.3 Baso % (Auto) 0.3 Lymph # (Auto) 3.42 H [place] # (Auto) 1.1 H Eos # (Auto) 0.1 Baso # (Auto) 0.0 Abs Immat Gran (auto) 0.06 H Absolute Neuts (auto) 10.8 H Absolute Nucleated RBC 0.000 Nucleated RBC % 0.0 Platelet Estimate Adequate Clumped Platelets Present % Immature Plt Fraction 8.0 Poikilocytosis 1+ Acanthocytes (Spur) 2+ Schistocytes None seen POC Capillary Glucose 109 H 104 RPR Non-reactive HIV 1&2 Ab/P24 Ag 4thGn Negative Blood Type O Positive Antibody Screen Negative OB - PN A/P Time Spent With Patient Time: Total time spent is greater than 50% in coordination of care (as documented) at patient's floor/unit and/or counseling patient:
[2023-09-17] MEDS: AMPICILLIN 1 GM/NS 50 ML 1 GM/50 ML BAG IVPB ×2 (19:45→23:51)
[2023-09-17] MEDS: CALCIUM CARBONATE (TUMS) 500 MG (200 MG ELEMENTAL) PO (20:08)
[2023-09-18] VITALS (132 sets, daily range): BP systolic 95–156; BP diastolic 40–94; PULSE 52–109; RESP 16–18; TEMP 36.5–37.1; O2SAT 83–100
[2023-09-18] MEDS: LACTATED RINGERS 1,000 ML 125 ML IV CONT (03:33)
[2023-09-18] MEDS: AMPICILLIN 1 GM/NS 50 ML 1 GM/50 ML BAG IVPB (03:33)
--- NOTE | 2023-09-18 06:50 | PM.OBPRVD ---
OB - Vaginal Delivery Note Procedure Delivery date: 09/18/23 Induction method: AROM and Per Pitocin Protocol Delivery monitor: External FHT and Internal Uterine Route of delivery: Episiotomy description: None Laceration Description: Perineal - 2nd Degree Delivery repair: vicryl Specimen: Yes Quantitative Blood Loss (ml): 250 [place]wl Baby Date of : 09/18/23 Time of : 06:29 Weeks of gestation at delivery: 37 Infant gender: Female Weight (pounds): 5 Weight (ounces): 12
[2023-09-18] MEDS: OXYTOCIN 30 UNITS/NS 500 ML 30 UNITS/500 ML BAG 125 UNITS IV CONT (06:53)
[2023-09-18] MEDS: LABETALOL HCL 100 MG TABLET 200 MG PO ×2 (09:13→20:42)
[2023-09-18] MEDS: ESCITALOPRAM OXALATE 10 MG TABLET PO (09:15)
[2023-09-18] MEDS: MULTIVIT/MIN/PREN/FOL AC/IRON TABLET 1 TAB PO (09:15)
[2023-09-18] MEDS: BENZOCAINE 20% AER SPR (*SP) 56 GM CAN 1 SPRAY TOPICAL (09:19)
[2023-09-18] MEDS: WITCH HAZEL 40 PADS 1 PAD TOPICAL (09:19)
--- NOTE | 2023-09-18 09:30 | PC.NURSE ---
Admitted to room 285, admission packet provided, assessment and adebayo care completed, patiernt verbalized understanding of admission information, sister at bedside, patient resting comfortably.
[2023-09-18] MEDS: IBUPROFEN 600 MG TABLET PO ×2 (16:23→20:41)
[2023-09-19] VITALS (9 sets, daily range): BP systolic 116–160; BP diastolic 51–92; PULSE 56–70; RESP 18–20; TEMP 36.4–37; O2SAT 98–99
[2023-09-19 04:48] LABS: Glucose Point of Care 88 mg/dl (65-105)
[2023-09-19] MEDS: LABETALOL HCL 100 MG TABLET 200 MG PO ×2 (04:52→22:25)
[2023-09-19 05:58] LABS: Hematocrit 29.4 % (37.0-47.0); Hemoglobin 9.6 g/dL (12.0-15.0)
--- NOTE | 2023-09-19 07:54 | PM.OBPNVD ---
OB - PN: Subj Subjective Date/time seen: 09/19/23 07:54 Interval history: Artificial rupture of membranes-clear, 1.5 cm/ 80%/-2. reassuring status. Patient comments: no complaints, pain well controlled, incisional pain, tolerating diet and flatus present OB - PN: Obj Data Labs 09/19/23 04:30 Labs: Laboratory Results - last 24 hr 09/19/23 09/19/23 04:29 04:30 Hgb 9.6 L Hct 29.4 L POC Capillary Glucose 88 OB - PN A/P Plan day: 1 Plan: routine care Comments: No problems, routine care Time Spent With Patient Time: Total time spent is greater than 50% in coordination of care (as documented) at patient's floor/unit and/or counseling patient: Exam Const: General: comfortable, no acute distress and alert Resp: Effort & Inspection: normal respiratory effort Auscultation: no crackles, no rales and no rhonchi Cardio: Rate: regular rate Heart sounds: no click, no murmurs and no rubs GI: Inspection: non-distended GI Palp: No Tenderness to palpation present (GI) Auscultation: normal bowel sounds Other: Incision - CDI Extrem: General: normal to inspection, no pedal edema and no calf tenderness
--- NOTE | 2023-09-19 08:02 | PM.OBDSVD ---
DS: Admitting Diagnosis Discharge Date 09/19/23 Admitting Diagnosis term DS: Discharge Diagnosis Discharge Diagnosis (1) Post term , delivered: Code(s): O48.0 - Post-term Status: Acute OB - DS: Summary OB Procedures : None OB Procedures Intrapartum: Spontaneous Vag Delivery OB Procedures: : None Peripartum Data Laceration Description: Perineal - 2nd Degree Episiotomy description: None Time Spent with Patient Time attestation: Total time spent providing and/or coordinating discharge services: DS: Data Data Completed and Pending Pending studies at discharge: Pending at discharge 09/18/23 06:33 Surgical [PTH] Routine Labs on day of discharge: Labs from last 24 hours 09/19/23 09/19/23 04:30 04:29 Hgb 9.6 L Hct 29.4 L POC Capillary Glucose 88 Discharge Plan Discharge Discharging Clinician: Orlando Acriniega Patient Disposition: Home, Self-Care Activity: pelvic rest Diet: regular Patient Instructions: Antibiotic Form Stand Alone Forms: General Discharge Information Follow-up/Referrals: Orlando Arciniega MD [Physician] - Discharge Medications: Continued labetalol 200 mg Tablet 200 mg PO Q12H Qty: 14 0RF escitalopram oxalate 10 mg tablet 10 mg PO DAILY Discontinued aspirin [Aspir-81] 81 mg Tablet,Delayed Release (Dr/Ec) 81 mg PO DAILY Date of admission: 09/16/23 19:28 Primary Care Provider: BelloJose Admitting Provider: Orlando Arciniega Attending physician on admission: Orlando Arciniega Condition: Stable
[2023-09-19] MEDS: MULTIVIT/MIN/PREN/FOL AC/IRON TABLET 1 TAB PO (08:28)
[2023-09-19] MEDS: DOCUSATE SODIUM 100 MG CAPSULE PO ×2 (08:28→17:20)
[2023-09-19] MEDS: ESCITALOPRAM OXALATE 10 MG TABLET PO (08:28)
[2023-09-19] MEDS: POLYSACCHARIDE IRON COMPLEX 150 MG CAPSULE PO ×2 (08:28→17:25)
--- NOTE | 2023-09-19 12:52 | WPDANLDPN2 ---
Anes-Prog Note L&D Date/Time: 09/19/23 12:52 Comfortable throughout: labor and delivery Neuraxial method: epidural Epidural/Spinal procedure site: clean & non-tender Neuro status: Neuro function grossly intact. Cardiovascular status: normal Respiratory status: normal Airway patency: baseline Mental status: baseline Post-Op hydration status: normal Vital Signs: Last Vital Signs Temp 36.4 C L 09/19/23 08:20 Pulse 56 L 09/19/23 08:20 Resp 20 09/19/23 08:20 BP 141/73 H 09/19/23 08:20 Pulse Ox 99 09/19/23 04:24 O2 Del Method Room Air 09/16/23 21:14 Pain score (VAS): 0/10 I/O: Intake & Output 09/18/23 09/19/23 09/19/23 23:59 07:59 15:59 Intake Total 640 400 Output Total 700 Balance 640 -300 Post-procedural complaints: none Patient feedback: Patient satisfied with anesthetic care.
[2023-09-19] MEDS: IBUPROFEN 600 MG TABLET PO (14:15)
[2023-09-19] MEDS: ACETAMINOPHEN 325 MG TABLET 650 MG PO (14:17)
[2023-09-20 05:50] VITALS: BP 139/72; PULSE 57; O2SAT 99
[2023-09-20] MEDS: ESCITALOPRAM OXALATE 10 MG TABLET PO (08:26)
[2023-09-20] MEDS: POLYSACCHARIDE IRON COMPLEX 150 MG CAPSULE PO (08:26)
[2023-09-20] MEDS: DOCUSATE SODIUM 100 MG CAPSULE PO (08:26)
[2023-09-20] MEDS: LABETALOL HCL 100 MG TABLET 200 MG PO (08:26)
[2023-09-20] MEDS: MULTIVIT/MIN/PREN/FOL AC/IRON TABLET 1 TAB PO (08:26)
--- NOTE | 2023-09-20 08:30 | PC.NURSE ---
Patient received instruction on viewing the discharge video Mother & Baby Care, The First Two Weeks . Patient was given the opportunity and encouraged to ask questions. Patient verbalized understanding of information shared and has been given the mother/baby guide for home reference.
[2023-09-20 08:35] VITALS: BP 125/67; PULSE 64; RESP 18; TEMP 36.4
--- NOTE | 2023-09-20 15:24 | PC.NURSE ---
[id number] Consulted with mother concerning needs and she shared her ability to independently latch infant optimally without pain, pump and supplement her infant with formula. Mother is feeding appropriately for growth of infant and understands stimulating infant to eat if needed. has had appropriate feedings in the last 24 hours meets the outcomes for weight, output, blood sugar and jaundice at this time. Instructions given on cleaning, care, usage, that there should be no pain, pumping schedule for milk production, collection, and storage of human milk. We discussed how to find the correct placement, flange size, to pump for comfort and nipple stretching/stimulation for adequate milk production every 3 hours (8 times in 24 hours) 1-2 times at night. A picture was taken of the handout of pump measurement, flange fit for additional resource information. parent will be using a [employer] 2 at home. Reinforced understanding of milk production, transition of milk, signs of adequate intake, transition of stool, prevention/relief of engorgement, plugged ducts, mastitis, responsive watching for feeding cues, the different methods of stimulating to breastfeed 1-3 hours after the start of the last feeding, community resources with [facility], OBGYN office and [facility] (fax form sent). We reviewed when to call a provider using the resource of the feeding sheet along with the mom and baby guide. Mother voiced understanding of the information shared confident to continue feeding her at home and when to call for assistance.
[2023-09-22 10:06] VITALS: BP 140/89; PULSE 55; RESP 18; TEMP 36.9; O2SAT 100
== END 2023-09-20 09:55 | disposition home or self-care (01) | DRG 560 ==
LOC: ANHLDR 19:35 → ANHOB2 09-18 09:08
PROVIDERS: Admitting Provider Obstetrics & Gynecology; PCP Physician Assistant; Visit Provider Obstetrics & Gynecology
DX: O13.4 Gestational [pregnancy-induced] hypertension without significant proteinuria, complicating childbirth (principal); O70.1 Second degree perineal laceration during delivery; O99.824 Streptococcus B carrier state complicating childbirth; O69.3XX0 Labor and delivery complicated by short cord, not applicable or unspecified; Z3A.37 37 weeks gestation of pregnancy; Z37.0 Single live birth
CPT/HCPCS: 36415; 82948; 85014; 85018; 85025; 85055; 86592; 86703; 86850; 86900; 86901; 88307; A9270; G0432; J0290; J2590; J2795; J7120

== ENCOUNTER 2024-03-17 15:59 | Emergency (ER) | payer OTHER, SELFPAY ==
--- NOTE | ~2024-03-17 | CT_ITS ---
CT abdomen pelvis w con Ordering provider: Samir Tamayo MD History: 33 years Female with . Abdominal pain/ nausea/ vomiting/ diarrhea x3 days . Comparison: None. Technique: CT abdomen and pelvis with IV and without oral contrast. Automated exposure control and it erative reconstruction technique were employed. The dose-length product was 1256.82 mGy-cm. 100 mL Om nipaque 350 was given IV. Findings: VISUALIZED LOWER CHEST: Normal. Trace of pericardial effusion seen anteriorly. UPPER ABDOMINAL ORGANS: Liver: Hepatomegaly. Gallbladder: Normal. Spleen: Status post splenectomy. Stomach/duodenum: Sliding hiatus hernia. Pancreas: Normal. Adrenals: Normal. Kidneys: Normal. PELVIC ORGANS: The bladder is normal. Uterus: Normal. Bilateral ovarian cysts are seen measuring 2.7 cm on the left side and 2.7 cm on the right side. BOWEL AND MESENTERY: Colon: No evidence of diverticulitis. Fluid content is seen in the colon and distal small bowel sugge stive of diarrhea versus enteritis. No significant dilatation seen in the small bowel. Slight thicken ing of the wall is seen in the jejunum which may indicate enteritis. Appendix is not demonstrated. No obstruction. Peritoneum/mesentery: No free air or free fluid. Mesenteric lymph nodes are noted with the largest me asures 1.6 cm.. RETROPERITONEUM: Normal aorta. No retroperitoneal lymphadenopathy. MUSCULOSKELETAL: Superficial soft tissues: The superficial soft tissues are normal. Bones: Normal spine. IMPRESSION: 1. Sliding hiatus hernia. 2. Fluid in the small and large bowel suggestive of diarrhea versus enteritis. Clinical correlation and follow-up advised. No definite evidence of obstruction seen. 3. Hepatomegaly. Reviewed, dictated and finalized at location A. [facility] IMPRESSION: 1. Sliding hiatus hernia. 2. Fluid in the small and large bowel suggestive of diarrhea versus enteritis. Clinical correlation and follow-up advised. No definite evidence of obstructio n seen. 3. Hepatomegaly.
[2024-03-17 16:04] VITALS: BP 157/113; PULSE 85; RESP 20; TEMP 36.6; O2SAT 100
--- NOTE | 2024-03-17 16:25 | ED_ITS ---
HPI - Abdominal Pain General Chief Complaint: Abdominal Pain Stated Complaint: vomiting Source: patient Mode of arrival: ambulatory Limitations: no limitations History of Present Illness HPI narrative: patient is a 33-year-old female with umbilical pain in the past week. Further the pain has now radiated down to the left lower quadrant. Further radiation is also to the right lower back. She has had a little bit of nausea and vomiting but more so diarrhea since the past week. 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 MD elicited complaint: abdominal pain Pertinent past history: none Onset (ago): week(s) (1) Pain Consistency: constant Location: periumbilical, LLQ and other ( Right lower back) Severity: moderate Pain scale (0-10): 5 Quality: stabbing and sharp Radiation: LLQ Migration to: no migration Exacerbating factors: nothing Relieving factors: nothing Context: confirms other ( patient having umbilical pain which has radiated to the left lower quadrant and right lower back; associated diarrhea) Associated symptoms: nausea, vomiting, diarrhea and anorexia Treatments prior to arrival: other ( none) Related Data Patient : No Home Medications Medication Instructions Recorded Confirmed aspirin 81 mg capsule 81 mg PO DAILY 11/16/23 11/16/23 certolizumab pegol 400 mg/2 mL 400 mg subcut ONCE 11/16/23 11/16/23 (200 mg/mL x2) subcutaneous syringe kit (Cimzia Starter Kit) escitalopram oxalate 10 mg tablet 20 mg PO DAILY 11/16/23 11/16/23 ferrous sulfate 325 mg (65 mg 325 mg PO DAILY 11/16/23 11/16/23 iron) tablet (FeroSul) hydroxyzine pamoate 25 mg capsule 25 mg PO QHS 11/16/23 11/16/23 Allergies Allergy/AdvReac Type Severity Reaction Status Date / Time diphenhydramine Allergy Mild SEIZURES Verified 11/16/23 13:01 latex Allergy Mild Rash Verified 11/16/23 13:01 loratadine [From Claritin-D] Allergy Mild Hives Verified 11/16/23 13:01 pseudoephedrine Allergy Mild Hives Verified 11/16/23 13:01 [From Claritin-D] Review of Systems Review of Systems: All systems reviewed & are unremarkable except as noted in HPI and below Constitutional: Constitutional: Reports no additional constitutional complaints Eyes: Eyes: Reports no additional eye complaints ENT: Reports system reviewed and no additional complaints, except as documented Cardiovascular: Cardiovascular: Reports no additional cardiovascular complaints Respiratory: Respiratory: Reports no additional respiratory complaints Gastrointestinal: Gastrointestinal: Reports no additional gastrointestinal complaints Genitourinary: Genitourinary: Reports no additional female genitourinary complaints Musculoskeletal: Musculoskeletal: Reports no additional musculoskeletal complaints Integumentary/Breasts: Skin/Breast: Reports system reviewed and no additional complaints, except as docu Neurologic: Reports system reviewed and no additional complaints, except as documented Psychiatric: Psychiatric: Reports no additional psychiatric complaints Endocrine: Endocrine: Reports no additional endocrine complaints Hematologic/Lymphatic: Hematologic/Lymphatic: Reports no additional hematologic/lymphatic complaints Allergic/Immunologic: Allergic/Immunologic: Reports no additional allergic/immunologic complaints PMFSH Past Medical History Medical History Anxiety Arthritis Felty syndrome Morbid obesity Post term , delivered Rheumatoid arthritis with rheumatoid factor of multiple sites without organ or systems involvement Vapes nicotine containing substance Surgical History Surgical History H/O splenectomy Post-lymphadenectomy lymphedema of arm Family History Family History Mother , 46 COPD (chronic obstructive pulmonary disease) Emphysema/COPD Father , cancer age 47 Lung cancer Grandparent Alzheimer disease Malignant neoplasm of prostate Grandparent , 46 cancer Lung cancer Sibling Lupus Sibling Lupus Social History Social History Smoking status: Never smoker Alcohol intake: never Substance use: never Do You Feel Safe in your Home?: Yes Lack of Transportation: No Lack of Food: Never True Current Housing: Decline to Answer Concerned About Future Housing: No Difficulty Paying Gas/Electric Bills: No Difficulty Paying for Meds: No Currently Unemployed: No Education: Don't Know Difficulty w/ Childcare or Family Care: No Living arrangements: with family Gender identity (if verbalized by the patient): Female Spiritual care concerns: No Exam Const: General: healthy appearing Nutritional Appearance: well nourished and obese Orientation/consciousness: patient oriented x3 Limitations: no limitations HENMT: Head: normal to inspection Ears: external ears normal Face/Nose/Sinus: Normal external nose present Eyes: Conjunctivae: conjunctivae normal Pupils: Equal, round and reactive pupils present EOM: EOMs intact bilaterally Neck: Neck: normal visual inspection Chest: Chest palpation & inspection: normal inspection of the chest Resp: Effort & Inspection: normal respiratory effort and not labored Auscultation: clear to auscultation bilaterally and no crackles Cardio: Rate: regular rate Rhythm: regular rhythm Heart sounds: no murmurs GI: Inspection: non-distended GI Palp: Yes Soft to palpation, Yes Tenderness to palpation present (GI) ( left upper quadrant and left lower quadrant to palpation), No Guarding due to palpation present (GI), No Rigid due to palpation, No Hernia present, No Palpable mass present and Yes Rebound tenderness present ( left lower quadrant) Auscultation: bowels sounds not normal and Hypoactive bowel sounds present : General: Yes bladder normal to palpation Back/Spine/Pelvis: Back: no CVA tenderness Skin: General skin exam: normal color Rashes: no rashes Wounds: no w ounds Neuro: General: patient oriented x3 Cranial nerves: Yes Nystagmus not present Speech: normal speech Extrem: General: normal to inspection Psych: Mental Status: mental status grossly normal Affect: normal affect Attitude: cooperative Course Vital Signs Vital signs: Vital Signs Temperature 36.6 C 03/17/24 16:04 Pulse Rate 85 03/17/24 16:04 Respiratory Rate 20 03/17/24 16:04 Blood Pressure 157/113 H 03/17/24 16:04 Pulse Oximetry 100 03/17/24 16:04 Oxygen Delivery Room Air 03/17/24 16:04 Temperature 36.6 C 03/17/24 16:04 Pulse Rate 85 03/17/24 16:04 Respiratory Rate 20 03/17/24 16:04 Blood Pressure 157/113 H 03/17/24 16:04 Pulse Oximetry 100 03/17/24 16:04 Oxygen Delivery Room Air 03/17/24 16:04 MDM - Abdominal Pain MDM Narrative Medical decision making narrative: patient is a 33-year-old female with left lower quadrant abdominal pain. We will do workup at this time. Lab Data Attestation: I reviewed the patient's lab results. 03/17/24 17:13 03/17/24 17:12 Labs: Lab Results 03/17/24 03/17/24 03/17/24 Range/Units 16:56 17:12 17:13 WBC 12.1 H (4.8-10.8) K/mm3 RBC 4.37 (4.20-5.40) M/mm3 Hgb 12.9 (12.0-15.0) g/dL Hct 37.7 (35.0-49.0) % MCV 86.3 (78.0-102.0) fL MCH 29.5 (27.0-31.0) pg MCHC 34.2 (32-36) g/dL RDW 14.1 (11.6-14.4) % Plt Count 458 H (150-420) K/mm3 MPV 9.4 (9.2-11.8) fl Immature Gran % (Auto) 0.2 H (0.0-0.0) % Neut % (Auto) 66.2 (50.0-70.0) % Lymph % (Auto) 22.0 (18.0-42.0) % Spencer % (Auto) 10.3 (2.0-11.0) % Eos % (Auto) 1.0 (1.0-6.0) % Baso % (Auto) 0.3 (0.0-1.0) % Lymph # (Auto) 2.67 (1.10-4.50) K/mm3 Spencer # (Auto) 1.25 H (0.10-0.90) K/mm3 Eos # (Auto) 0.12 (0.02-0.50) K/mm3 Baso # (Auto) 0.04 (0.00-0.10) K/mm3 Abs Immat Gran (auto) 0.03 H (0.00-0.00) K/mm3 Absolute Neuts (auto) 8.00 H (1.70-7.20) K/mm3 Absolute Nucleated RBC 0.00 (0.00-0.00) K/mm3 Nucleated RBC % 0.0 (0-0.0) % PT 10.9 (9.50-12.1) Seconds INR 1.0 APTT 29.9 (23.9-30.70) Sec Sodium 139 (136-145) mmol/L Potassium 3.4 L (3.5-5.1) mmol/L Chloride 102 (98-108) mmol/L Carbon Dioxide 28 (21-32) mmol/L Anion Gap 9 (4-12) mmol/L BUN 9 (7-18) mg/dL Creatinine 0.67 (0.55-1.02) mg/dL Estim Creat Clear Calc 118 ml/min Estimated GFR > 60 (59 - ) Glucose 94 (70-99) mg/dL Calculated Osmolality 286 (285-295) mOsm/kg Lactic Acid 0.7 (0.4-2.0) mmol/L Calcium 8.7 (8.5-10.1) mg/dL Total Bilirubin 0.2 (0.00-1.00) mg/dL AST 17 (15-37) U/L ALT 32 (14-59) U/L Alkaline Phosphatase 67 (46-116) U/L Total Protein 7.8 (6.4-8.2) g/dL Albumin 3.7 (3.4-5.0) g/dL Lipase 16 (16-77) U/L Urine Color Light yellow (Yellow) Urine Appearance Clear (Clear) Urine pH 6.0 (5.0-8.0) Ur Specific [place] 1.010 (1.010-1.020) Urine Protein Negative (Negative) Urine Glucose (UA) Negative (Negative) Urine Ketones Negative (Negative) Ur Blood (Man) Negative (Negative) Urine Nitrate Negative (Negative) Urine Bilirubin Negative (Negative) Urine Urobilinogen 0.2 (0.2-1.0) mg/dL Leukocyte Esterase Rfl Negative (Negative) RAJAT/UL Urine Test Negative Imaging Data Attestation: I personally reviewed and interpreted this imaging study as follows: Radiologist's impression: ITS Impressions Abdomen/Pelvis CT 03/17/24 18:03 IMPRESSION: 1. Sliding hiatus hernia. 2. Fluid in the small and large bowel suggestive of diarrhea versus enteritis. Clinical correlation and follow-up advised. No definite evidence of obstruction seen. 3. Hepatomegaly. Discharge Plan Discharge Clinical Impression: Gastroenteritis, Hypokalemia Lumbago Qualifiers: Chronicity: acute Back pain laterality: right Sciatica presence: without sciatica Qualified Code(s): M54.50 - Low back pain, unspecified Patient Disposition: Home, Self-Care Condition: Stable Instructions: Gastroenteritis (ED) Additional Instructions: please follow-up with the primary doctor in the next week. Have them do stool studies if this diarrhea does not resolve to look for bacteria or parasites. Prescriptions: No Action ferrous sulfate [FeroSul] 325 mg (65 mg iron) tablet 325 mg PO DAILY Cimzia Starter Kit 400 mg/2 mL (200 mg/mL x 2) syringe kit 400 mg subcut ONCE Rx Instructions: administer as 2 equally divided doses at 2 different sites in abdomen or thigh hydroxyzine pamoate 25 mg capsule 25 mg PO QHS aspirin 81 mg capsule 81 mg PO DAILY lisinopril 10 mg tablet 10 mg PO DAILY Qty: 30 0RF escitalopram oxalate 10 mg tablet 20 mg PO DAILY Follow-up/Referrals: UNKNOWN,DOCTOR [Primary Care Provider] - Time of Disposition: 18:52
[2024-03-17 17:16] LABS: Basophils Absolute Auto 0.04 K/mm3 (0.00-0.10); Basophils Percent Auto 0.3 % (0.0-1.0); Eosinophils Absolute Auto 0.12 K/mm3 (0.02-0.50); Hematocrit 37.7 % (35.0-49.0); Hemoglobin 12.9 g/dL (12.0-15.0); Immature Granulocyte Absolute 0.03 K/mm3 (0.00-0.00); Immature Granulocyte Percent A 0.2 % (0.0-0.0); Lymphocytes Absolute Auto 2.67 K/mm3 (1.10-4.50); Mean Corpuscular HGB Conc 34.2 g/dL (32-36); Mean Corpuscular Hemoglobin 29.5 pg (27.0-31.0); Mean Corpuscular Volume 86.3 fL (78.0-102.0); Mean Platelet Volume 9.4 fl (9.2-11.8); Monocytes Absolute Auto 1.25 K/mm3 (0.10-0.90); Monocytes Percent Auto 10.3 % (2.0-11.0); Neutrophils Percent Auto 66.2 % (50.0-70.0); Platelet Count Result 458 K/mm3 (150-420); Red Blood Count 4.37 M/mm3 (4.20-5.40); Red Cell Distribution Width 14.1 % (11.6-14.4); White Blood Count 12.1 K/mm3 (4.8-10.8)
[2024-03-17 17:19] LABS: Add Urine Microscopic? NO; Appearance Urine Clear (Clear); Bilirubin Urine Negative (Negative); Blood Urine Negative (Negative); Color Urine Light Yellow (Yellow); Glucose Urine UA Negative (Negative); Ketones Urine Negative (Negative); Leukocyte Esterase Ur Negative LEU/UL (Negative); Nitrate Urine Negative (Negative); Protein Urine Negative (Negative); Urobilinogen Urine 0.2 mg/dL (0.2-1.0)
[2024-03-17 17:24] LABS: Pregnancy On Board Control Positive; Urine Pregnancy Test Negative
[2024-03-17 17:29] LABS: Partial Thromboplastin Time 29.9 Sec (23.9-30.70); Prothrombin Time 10.9 Seconds (9.50-12.1)
[2024-03-17 17:32] LABS: Alanine Aminotransferase 32 U/L (14-59); Albumin Level 3.7 g/dL (3.4-5.0); Alkaline Phosphatase 67 U/L (46-116); Anion Gap 9 mmol/L (4-12); Aspartate Amino Transferase 17 U/L (15-37); Bilirubin,Total 0.2 mg/dL (0.00-1.00); Blood Urea Nitrogen 9 mg/dL (7-18); Calcium 8.7 mg/dL (8.5-10.1); Carbon Dioxide 28 mmol/L (21-32); Chloride 102 mmol/L (98-108); Estimated CRCL calculation 118 ml/min; Estimated Glomerular Filt Rate > 60; Glucose 94 mg/dL (70-99); Lipase 16 U/L (16-77); Osmolality Calculated 286 mOsm/kg (285-295); Potassium 3.4 mmol/L (3.5-5.1); Sodium 139 mmol/L (136-145); Total Protein 7.8 g/dL (6.4-8.2)
[2024-03-17 17:35] LABS: Lactic Acid Reflex 0.7 mmol/L (0.4-2.0)
[2024-03-17 17:40] VITALS: BP 157/94; PULSE 84; RESP 20; O2SAT 96
[2024-03-17] MEDS: POTASSIUM CHLORIDE 20 MEQ ER TABLET PO (18:59)
[2024-03-17] MEDS: KETOROLAC 30 MG/ML VIAL (*BKC) IV PUSH (19:05)
[2024-03-17 19:10] VITALS: BP 142/100; PULSE 74; RESP 20; TEMP 37; O2SAT 99
--- NOTE | 2024-03-19 12:11 | PC.NURSE ---
preliminary blood culture report reviewed. no growth to date
--- NOTE | 2024-03-23 13:20 | PC.NURSE ---
blood culture reviewed, no growth 5 day final
== END 2024-03-17 19:10 | disposition home or self-care (01) ==
PROVIDERS: Emergency Provider Emergency Medicine
DX: K52.9 Noninfective gastroenteritis and colitis, unspecified (principal); E87.6 Hypokalemia; M54.50 Low back pain, unspecified
CPT/HCPCS: 36415; 74177; 80053; 81003; 81025; 83605; 83690; 85025; 85610; 85730; 87040; 96374; 99284; A9270; J1885; Q9967

== ENCOUNTER 2024-11-05 12:53 | Emergency (ER) | payer OTHER, SELFPAY ==
[2024-11-05 13:03] VITALS: BP 130/84; PULSE 100; RESP 18; TEMP 36.3; O2SAT 100
[2024-11-05 13:11] LABS: EDSTREPNEGPOS1 Negative (Negative)
--- NOTE | 2024-11-05 13:16 | ED.URI ---
HPI - URI/Sore Throat General Chief Complaint: Upper Respiratory Infection Stated Complaint: sore throat Time Seen by Provider: 11/05/24 13:05 Source: patient and RN notes reviewed Mode of arrival: ambulatory Limitations: no limitations History of Present Illness HPI Narrative: 33-year-old female presents [facility] complaining of sore throat, tactile fevers, and congestion for approximately 3 days. Patient took some leftover Keflex at home and says her symptoms are not getting better. She denies any cough, runny nose, ear pain, chest pain, shortness of breath, nausea, vomiting, diarrhea, abdominal pain, or any other symptoms. Patient says she has a history of splenectomy back in 2019. Related Data Home Medications ?Medication ?Instructions ?Recorded ?Confirmed ?Last Taken ?Type certolizumab pegol 400 mg/2 mL 400 mg subcut ONCE 11/16/23 06/14/24 Unknown History (200 mg/mL x2) subcutaneous syringe kit (Cimzia Starter Kit) aspirin 81 mg tablet 81 mg PO DAILY 11/05/24 Unknown History Allergies Allergy/AdvReac Type Severity Reaction Status Date / Time diphenhydramine Allergy Mild SEIZURES Verified 11/05/24 12:56 latex Allergy Mild Rash Verified 11/05/24 12:56 loratadine (From Claritin-D) Allergy Mild Hives Verified 11/05/24 12:56 pseudoephedrine (From Allergy Mild Hives Verified 11/05/24 12:56 Claritin-D) Review of Systems Review of Systems: CONSTITUTIONAL: Positive for tactile fevers. Negative for body aches chills, or sweats. EYES: Denies visual changes, redness, or discharge. ENT: Positive for sore throat and congestion. Negative for rhinorrhea or otalgia. CARDIOVASCULAR: Denies chest pain, palpitations, or edema. RESPIRATORY: Denies cough or dyspnea. GASTROINTESTINAL: Denies abdominal pain, nausea, vomiting, or diarrhea. GENITOURINARY: Denies dysuria or hematuria. SKIN: Denies rash or itching. MUSCULOSKELETAL: Denies back pain, joint pain, or myalgia. NEUROLOGIC: Denies headache, numbness, or weakness. PSYCHIATRIC: Denies anxiety or depression. All other systems reviewed are negative, except as documented in HPI. 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 Anxiety Arthritis Surgical History Surgical History H/O splenectomy Post-lymphadenectomy lymphedema of arm Family History Family History Mother , 46 COPD (chronic obstructive pulmonary disease) Emphysema/COPD Father , cancer age 47 Lung cancer Grandparent Alzheimer disease Malignant neoplasm of prostate Grandparent , 46 cancer Lung cancer Sibling Lupus Sibling Lupus Social History Social History Smoking status: Never smoker Alcohol intake: never Substance use: never Do You Feel Safe in your Home?: Yes Lack of Transportation: No Lack of Food: Never True Current Housing: Decline to Answer Concerned About Future Housing: No Difficulty Paying Gas/Electric Bills: No Difficulty Paying for Meds: No Currently Unemployed: No Education: Don't Know Difficulty w/ Childcare or Family Care: No Living arrangements: with family Gender identity (if verbalized by the patient): Female Spiritual care concerns: No Comments At the time of my signature, I reviewed and agree with the nursing past medical, surgical, social, and family history. There is no relevant family history pertinent to the patient complaint. Exam Narrative: GENERAL: This is a well-nourished, well-developed adult, in no apparent distress. They are non ill-appearing, nontoxic appearing. HEAD: normocephalic, atraumatic. EYES: Sclera clear/white. Conjunctiva normal. Vision is grossly intact. Extraocular movements intact EARS: External ears normal, auditory canals clear and without drainage, TMs normal without perforation. Hearing grossly intact. NOSE: External nose normal with no obvious nasal discharge, nasal turbinates erythematous bilaterally, no rhinorrhea. THROAT: Mucous membranes moist, posterior pharynx erythematous without exudate. Tonsils erythematous and 2 + and exudative. Uvula midline. NECK: Neck supple, mild tenderness with cervical lymphadenopathy, no masses or thyromegaly. CARDIOVASCULAR: Regular rate and rhythm without murmurs, gallops, or rubs. RESPIRATORY: Clear to auscultation. Breath sounds equal bilaterally. No wheezes, rales, or rhonchi. SKIN: warm, Dry, intact with no suspicious lesions or rash, good texture and turgor. NEURO: awake, alert, and oriented to person, place and time. There were no obvious focal neurologic abnormalities. EXTREMITIES: No joint tenderness, effusion, or edema noted. Course Course Emergency Course: Portions of this record may have been created with voice recognition software Level of Care: Express Care Visit Vital Signs Vital signs: Vital Signs Temperature 97.3 F L 11/05/24 13:03 Pulse Rate 100 11/05/24 13:03 Respiratory Rate 18 11/05/24 13:03 Blood Pressure 130/84 11/05/24 13:03 Pulse Oximetry 100 11/05/24 13:03 Oxygen Delivery Room Air 11/05/24 13:03 Temperature 97.3 F L 11/05/24 13:03 Pulse Rate 100 11/05/24 13:03 Respiratory Rate 18 11/05/24 13:03 Blood Pressure 130/84 11/05/24 13:03 Pulse Oximetry 100 11/05/24 13:03 Oxygen Delivery Room Air 11/05/24 13:03 Reviewed MDM - URI/Sore Throat MDM Narrative Medical decision making narrative: Rapid strep negative. Rapid mono test negative. Throat culture pending. Symptoms likely viral in etiology. Discussed physical exam findings. Advised supportive measures and signs/symptoms to go to the ER. Pt is appropriate for outpt treatment and f/u. Differential Diagnosis Differential diagnosis: Likely upper respiratory infection, sinusitis, viral infection and pharyngitis Lab Data Attestation: I reviewed the patient's lab results. Labs: Lab Results 11/05/24 11/05/24 Range/Units 13:08 13:25 POC Monoscreen Negative (Negative) POC Grp A Strep Screen Negative (Negative) Critical Care Time Critical Care Time Critical Care Time: No Discharge Plan Discharge Clinical Impression: Pharyngitis Qualifiers: Pharyngitis/tonsillitis etiology: unspecified etiology Qualified Code(s): J02.9 - Acute pharyngitis, unspecified Patient Disposition: Home Condition: Stable Instructions: Antibiotic Form, Pharyngitis (ED) Additional Instructions: Your rapid strep swab and model swab was negative today at [facility]. You will be notified in a few days if the culture comes back positive for strep, and appropriate antibiotics will be called in for you at that time. Your symptoms are likely due to a viral illness, which is not treated with antibiotics. Viral symptoms can be present for up to 7-14 days. Take Tylenol or ibuprofen for fever or pain. Rest and stay hydrated. Follow up with your PCP in 3-5 days if symptoms are not improving. Go to the ER immediately if you develop difficulty breathing or swallowing Patient Language: Chinese Prescriptions: No Action aspirin 81 mg tablet 81 mg PO DAILY Cimzia Starter Kit 400 mg/2 mL (200 mg/mL x 2) syringe kit 400 mg subcut ONCE Rx Instructions: administer as 2 equally divided doses at 2 different sites in abdomen or thigh amlodipine 10 mg tablet 10 mg PO DAILY Qty: 90 2RF hydrochlorothiazide 25 mg tablet 25 mg PO DAILY Qty: 90 2RF escitalopram oxalate 20 mg tablet 20 mg PO DAILY Qty: 90 1RF Follow-up/Referrals: UNKNOWN,DOCTOR [Primary Care Provider] - Time of Disposition: 13:35
[2024-11-05 13:31] LABS: EDMONONEGPOS Negative (Negative)
== END 2024-11-05 13:38 | disposition home or self-care (01) ==
DX: J02.9 Acute pharyngitis, unspecified (principal); E66.01 Morbid (severe) obesity due to excess calories; Z68.38 Body mass index [BMI] 38.0-38.9, adult; M05.79 Rheumatoid arthritis with rheumatoid factor of multiple sites without organ or systems involvement; M05.00 Felty's syndrome, unspecified site; M19.90 Unspecified osteoarthritis, unspecified site; Z79.82 Long term (current) use of aspirin
CPT/HCPCS: 36416; 86308; 87081; 87880; 99212; G0463